=== PATIENT | female | born 1980 | race Caucasian/White ===

== ENCOUNTER 2016-04-19 19:18 | Emergency (ER) | payer BC ==
[~2016-04-19] VITALS: Ht 154.9 cm; Wt 58.5 kg
[2016-04-19 19:20] VITALS: BP 122/68; PULSE 88; RESP 18; TEMP 98.2; O2SAT 99
--- NOTE | 2016-04-19 19:25 | NUR ---
Patient to ER [facility] to [facility] for evaluation. Side rails up. Report given to JANELL Warner.
--- NOTE | 2016-04-19 19:27 | NUR ---
Patient came in for a dog bite via neighbor dog. Report is being filed, see report. Patient left hand has small wounds, No s/s of distress.
--- NOTE | 2016-04-19 19:30 | NUR ---
SUSIE Dunn [facility].
--- NOTE | 2016-04-19 19:30 | NUR ---
Patient given written and verbal discharge instructions and verbalizes understanding. ER MD discussed with patient the results and treatment provided. Patient in stable condition. ID arm band removed. Rx of Motrin, Bactrim, Bacitracin, Keflex given. Patient educated on pain management and to follow up with PMD. Pain Scale 0/10. Opportunity for questions provided and answered.
[2016-04-19 19:59] VITALS: BP 122/68; PULSE 88; RESP 18; TEMP 98.2; O2SAT 99
[2016-04-19] MEDS ORDERED: DIPH-TET-PERTUS Vaccine 0.5 ML VIAL (ADACEL) I.M. ONE (20:00)
[2016-04-19] MEDS ORDERED: BACITRACIN 1 GM OINT TP ONE (20:00)
[2016-04-19] MEDS ORDERED: IBUPROFEN 600 MG TABLET PO ONE (20:00)
== END 2016-04-19 19:59 | disposition home or self-care (01) ==
LOC: SED 19:18
DX: S61.052A Open bite of left thumb without damage to nail, initial encounter (principal); W54.0XXA Bitten by dog, initial encounter; Y93.K1 Activity, walking an animal; Y99.8 Other external cause status; Y92.89 Other specified places as the place of occurrence of the external cause
CPT/HCPCS: 90715; 99283